=== PATIENT | male | born 1945 | race Caucasian/White ===

== ENCOUNTER 2017-09-22 08:36 | Inpatient (IN) ==
[2017-09-22 09:47] LABS: Basophils % 0.5 % (0.0-0.8); Eosinophils # 0.3 10*3/uL (0.0-0.87); Eosinophils % 5.2 % (0.00-10.9); Hemoglobin 9.4 GM/DL (14.0-18.0); Immature Granulocytes % 0.5 %; Immature Granulocytes Absolute 0.03 #; Lymphocytes # 1.3 10*3/uL (1.4-4.0); Lymphocytes % 23.2 % (21.2-54.2); Mean Corpuscular HGB Conc 32.4 GM/DL (32-36); Mean Corpuscular Hemoglobin 28 PG (27-34); Mean Corpuscular Volume 87.1 FL (87-102); Mean Platelet Volume 8.6 FL (9.6-12.0); Monocytes # 0.6 10*3/uL (0.11-0.8); Monocytes % 10.5 % (1.7-12.7); Neutrophils # 3.4 10*3/uL (1.4-7.4); Neutrophils % 60.1 % (38.7-73.9); Platelet Count 463 T/CUMM (130-400); Red Blood Count 3.33 MC/CUMM (3.8-5.5); Red Cell Distribution Width 13.6 % (9.3-17.3); White Blood Count 5.7 T/CUMM (4-12)
[2017-09-22 10:07] LABS: Lactic Acid 0.8 MMOL/L (0.4-2.0)
[2017-09-22 10:08] LABS: Alanine Aminotransferase 14 U/L (16-61); Albumin 2.8 G/DL (3.4-5.0); Alkaline Phosphatase 67 U/L (45-117); Aspartate Amino Transferase 37 U/L (0-37); Bilirubin,Total < 0.39 MG/DL (0.2-1.0); Blood Urea Nitrogen 20 MG/DL (7-18); Calcium 8.7 MG/DL (8.5-10.1); Glucose 201 MG/DL (74-106); Osmolality,Calculated 278.1 MOS/KG (273-304); Potassium 5.8 MMOL/L (3.5-5.1); Sodium 135 MMOL/L (136-145)
[2017-09-22] MEDS ORDERED: ONDANSETRON 4 MG/2 ML VIAL IV PRN (14:18)
[2017-09-22] MEDS ORDERED: ACETAMINOPHEN 325 MG TABLET PO PRN (14:18)
[2017-09-22] MEDS: SODIUM CHLORIDE 0.9% 1,000 ML IV SCH (14:47)
[2017-09-22] MEDS ORDERED: NON-FORMULARY MEDICATION (Lansoprazole [Prevacid] 30 MG) PO PRN (19:02)
[2017-09-22] MEDS ORDERED: glipiZIDE 10 MG TABLET PO SCH (21:00)
[2017-09-22] MEDS ORDERED: CITALOPRAM 20 MG TABLET PO SCH (21:00)
[2017-09-22] MEDS: MEROPENEM 1,000 MG in SYRINGE 1 EACH IV SCH (21:14)
[2017-09-22] MEDS: INSULIN LISPRO 100 UNIT/ML SUBCUT SCH (21:14)
[2017-09-22] MEDS: PRAVASTATIN 20 MG TABLET PO SCH (21:15)
[2017-09-22] MEDS: traZODone 50 MG TABLET PO SCH (21:15)
[2017-09-22] MEDS: glipiZIDE 10 MG TABLET PO SCH (21:15)
[2017-09-22] MEDS: metFORMIN 500 MG TABLET PO SCH (21:15)
[2017-09-22] MEDS: CITALOPRAM 20 MG TABLET PO SCH (21:16)
[2017-09-22] MEDS: DOCUSATE SODIUM 100 MG CAPSULE PO SCH (21:16)
[2017-09-23] MEDS: SODIUM CHLORIDE 0.9% 1,000 ML IV SCH ×3 (01:30→19:17)
[2017-09-23 04:55] LABS: Basophils # 0.1 10*3/uL (0.0-0.2); Basophils % 0.8 % (0.0-0.8); Eosinophils # 0.5 10*3/uL (0.0-0.87); Eosinophils % 7.5 % (0.00-10.9); Hematocrit 27.4 VOL% (42.0-52.0); Hemoglobin 8.9 GM/DL (14.0-18.0); Immature Granulocytes % 0.5 %; Immature Granulocytes Absolute 0.03 #; Lymphocytes # 1.9 10*3/uL (1.4-4.0); Lymphocytes % 31.4 % (21.2-54.2); Mean Corpuscular HGB Conc 32.5 GM/DL (32-36); Mean Corpuscular Hemoglobin 28 PG (27-34); Mean Platelet Volume 8.6 FL (9.6-12.0); Monocytes # 0.6 10*3/uL (0.11-0.8); Monocytes % 10.5 % (1.7-12.7); Neutrophils % 49.3 % (38.7-73.9); Platelet Count 453 T/CUMM (130-400); Red Blood Count 3.15 MC/CUMM (3.8-5.5); Red Cell Distribution Width 13.6 % (9.3-17.3); White Blood Count 6.1 T/CUMM (4-12)
[2017-09-23] MEDS: MEROPENEM 1,000 MG in SYRINGE 1 EACH IV SCH ×3 (05:15→21:30)
[2017-09-23 05:21] LABS: Alanine Aminotransferase 10 U/L (16-61); Albumin 2.4 G/DL (3.4-5.0); Alkaline Phosphatase 59 U/L (45-117); Aspartate Amino Transferase 8 U/L (0-37); Bilirubin,Total < 0.39 MG/DL (0.2-1.0); Blood Urea Nitrogen 9 MG/DL (7-18); Cholesterol 125 MG/DL (50-200); Glucose 133 MG/DL (74-106); HDL Cholesterol 43 MG/DL (40-60); Osmolality,Calculated 281.3 MOS/KG (273-304); Potassium 4.2 MMOL/L (3.5-5.1); Risk Ratio 2.91; Sodium 141 MMOL/L (136-145); Total Protein 7.1 G/DL (6.4-8.3); Triglycerides 120 MG/DL (2-150)
[2017-09-23] MEDS: INSULIN LISPRO 100 UNIT/ML SUBCUT SCH ×4 (08:43→21:29)
[2017-09-23] MEDS ORDERED: LISINOPRIL 5 MG TABLET PO SCH (09:00)
[2017-09-23 10:33] LABS: Apearance,Urine CLEAR (Clear); Bilirubin,Urine Negative (Negative); Blood, Urine Negative (Negative); Glucose,Urine (UA) 150 mg/dL (Negative); Ketones,Urine 5 mg/dL (Negative); Mucus,Urine Occasional /LPF (Occasional); Nitrite,Urine Negative (Negative); Protein,Urine 30 MG/DL; RBC,Urine <1 /HPF (0-4); Squamous Epithelial Cell,Urine Occasional /HPF (0-10); Urine Color Yellow (Yellow); Urine Specific Gravity 1.024 (1.001-1.035); Urine Urobilinogen < 2.0 EU/DL (0.2-1.0); WBC,Urine 1 /HPF (0-6)
[2017-09-23] MEDS: metFORMIN 500 MG TABLET PO SCH ×2 (10:53→21:28)
[2017-09-23] MEDS: DOCUSATE SODIUM 100 MG CAPSULE PO SCH ×2 (10:53→21:28)
[2017-09-23] MEDS: PIOGLITAZONE 15 MG TABLET PO SCH (10:53)
[2017-09-23] MEDS: PANTOPRAZOLE 40 MG TABLET PO SCH (10:54)
[2017-09-23] MEDS: LISINOPRIL 5 MG TABLET PO SCH (10:54)
[2017-09-23] MEDS: glipiZIDE 10 MG TABLET PO SCH ×2 (10:54→21:27)
[2017-09-23] MEDS ORDERED: LIDOCAINE 1% 5 ML VIAL ONE (11:18)
[2017-09-23] MEDS ORDERED: PROPOFOL 200 MG/20 ML VIAL IV ONE (11:18)
[2017-09-23] MEDS: CITALOPRAM 20 MG TABLET PO SCH (21:27)
[2017-09-23] MEDS: PRAVASTATIN 20 MG TABLET PO SCH (21:28)
[2017-09-23] MEDS: traZODone 50 MG TABLET PO SCH (21:29)
[2017-09-24] MEDS: SODIUM CHLORIDE 0.9% 1,000 ML IV SCH ×3 (01:06→19:28)
[2017-09-24 04:13] LABS: Basophils % 0.4 % (0.0-0.8); Eosinophils # 0.6 10*3/uL (0.0-0.87); Eosinophils % 8.9 % (0.00-10.9); Hematocrit 25.9 VOL% (42.0-52.0); Immature Granulocytes % 0.6 %; Immature Granulocytes Absolute 0.04 #; Lymphocytes # 2.2 10*3/uL (1.4-4.0); Lymphocytes % 29.8 % (21.2-54.2); Mean Corpuscular HGB Conc 30.9 GM/DL (32-36); Mean Corpuscular Hemoglobin 28 PG (27-34); Mean Platelet Volume 8.4 FL (9.6-12.0); Monocytes # 0.6 10*3/uL (0.11-0.8); Monocytes % 8.9 % (1.7-12.7); Neutrophils # 3.7 10*3/uL (1.4-7.4); Neutrophils % 51.4 % (38.7-73.9); Platelet Count 394 T/CUMM (130-400); Red Blood Count 2.91 MC/CUMM (3.8-5.5); Red Cell Distribution Width 13.6 % (9.3-17.3); White Blood Count 7.2 T/CUMM (4-12)
[2017-09-24] MEDS: MEROPENEM 1,000 MG in SYRINGE 1 EACH IV SCH ×3 (04:35→20:57)
[2017-09-24 04:41] LABS: Calcium 7.5 MG/DL (8.5-10.1); Potassium 4.2 MMOL/L (3.5-5.1)
[2017-09-24] MEDS: INSULIN LISPRO 100 UNIT/ML SUBCUT SCH ×4 (08:23→20:51)
[2017-09-24] MEDS: PIOGLITAZONE 15 MG TABLET PO SCH (08:41)
[2017-09-24] MEDS: PANTOPRAZOLE 40 MG TABLET PO SCH (08:42)
[2017-09-24] MEDS: LISINOPRIL 5 MG TABLET PO SCH (08:42)
[2017-09-24] MEDS: glipiZIDE 10 MG TABLET PO SCH ×2 (09:17→20:53)
[2017-09-24] MEDS: metFORMIN 500 MG TABLET PO SCH ×2 (09:17→20:54)
[2017-09-24] MEDS: DOCUSATE SODIUM 100 MG CAPSULE PO SCH ×2 (10:01→20:53)
[2017-09-24] MEDS: CITALOPRAM 20 MG TABLET PO SCH (20:53)
[2017-09-24] MEDS: traZODone 50 MG TABLET PO SCH (20:53)
[2017-09-24] MEDS: PRAVASTATIN 20 MG TABLET PO SCH (20:54)
[2017-09-25] MEDS: SODIUM CHLORIDE 0.9% 1,000 ML IV SCH ×2 (03:19→13:58)
[2017-09-25] MEDS: MEROPENEM 1,000 MG in SYRINGE 1 EACH IV SCH ×2 (04:21→13:42)
[2017-09-25 06:36] LABS: Osmolality,Calculated 285.3 MOS/KG (273-304); Potassium 4.1 MMOL/L (3.5-5.1)
[2017-09-25] MEDS: PIOGLITAZONE 15 MG TABLET PO SCH (09:06)
[2017-09-25] MEDS: INSULIN LISPRO 100 UNIT/ML SUBCUT SCH ×3 (09:06→17:01)
[2017-09-25] MEDS: glipiZIDE 10 MG TABLET PO SCH (09:07)
[2017-09-25] MEDS: metFORMIN 500 MG TABLET PO SCH (09:07)
[2017-09-25] MEDS: DOCUSATE SODIUM 100 MG CAPSULE PO SCH (09:07)
[2017-09-25] MEDS: PANTOPRAZOLE 40 MG TABLET PO SCH (09:07)
[2017-09-25] MEDS: LISINOPRIL 5 MG TABLET PO SCH (09:07)
[2017-09-25 16:46] VITALS: BP 118/71
== END 2017-09-25 17:30 | disposition home or self-care (01) | DRG 394 ==
LOC: N.ED 08:36 → N.EDINP 11:33 → N.2E 14:17 → UNDODISIN 09-25 15:16
PROVIDERS: ADMIT Family Medicine; ATTEND Family Medicine